=== PATIENT | female | born 1960 | race Asian ===

== ENCOUNTER 2024-11-26 07:27 | Emergency (ER) | payer BC, OTHER ==
[~2024-11-26] VITALS: Ht 167.6 cm; Wt 72.7 kg
[2024-11-26 07:27] VITALS: TEMP 97.9
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
[2024-11-26 10:49] VITALS: BP 120/78; PULSE 69; RESP 17; O2SAT 97
--- NOTE | 2024-11-27 10:11 | ECG ---
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
== END 2024-11-26 10:55 | disposition home or self-care (01) ==
LOC: EDBD 07:27 → ER 07:27
DX: S16.1XXA Strain of muscle, fascia and tendon at neck level, initial encounter (principal); V89.2XXA Person injured in unspecified motor-vehicle accident, traffic, initial encounter; Y93.89 Activity, other specified; Y92.410 Unspecified street and highway as the place of occurrence of the external cause; Y99.8 Other external cause status
CPT/HCPCS: 70450; 71045; 72125; 93005